=== PATIENT | male | born 2000 | race Two or more races ===

== ENCOUNTER 2020-07-22 15:07 | Outpatient (CLI) | payer OTHER | END 2020-07-22 15:19 | disposition home or self-care (01) | LOC: TOM 15:07 | PROVIDERS: ATTEND Psychiatry & Neurology Neurology | DX: G93.89 Other specified disorders of brain (principal) ==

== ENCOUNTER → 2021-07-24 | Outpatient (CLI) | payer OTHER | END | disposition home or self-care (01) | LOC: NUCLEAR 09:00 | DX: R00.2 Palpitations (principal) ==

== ENCOUNTER 2021-08-04 07:36 | Outpatient (CLI) | payer OTHER | END 2021-08-04 07:37 | disposition home or self-care (01) | LOC: NUCLEAR 07:36 | DX: R00.2 Palpitations (principal); R07.89 Other chest pain ==

== ENCOUNTER 2022-08-10 11:52 | Emergency (ER) | payer OTHER ==
[~2022-08-10] VITALS: Ht 167.6 cm; Wt 63.5 kg
== END 2022-08-10 16:58 | disposition home or self-care (01) ==
LOC: ER 11:52
DX: L02.214 Cutaneous abscess of groin (principal)

== ENCOUNTER 2022-11-20 08:48 | Emergency (ER) | payer OTHER ==
[~2022-11-20] VITALS: Ht 167.6 cm; Wt 67.6 kg
== END 2022-11-20 09:52 | disposition home or self-care (01) ==
LOC: ER 08:48
DX: L73.2 Hidradenitis suppurativa (principal)

== ENCOUNTER 2022-12-29 17:49 | Emergency (ER) | payer OTHER ==
[~2022-12-29] VITALS: Ht 167.6 cm; Wt 67.6 kg
== END 2022-12-29 20:43 | disposition home or self-care (01) ==
LOC: ER 17:49
DX: M25.572 Pain in left ankle and joints of left foot (principal)

== ENCOUNTER 2023-04-28 14:18 | Emergency (ER) | payer OTHER ==
[~2023-04-28] VITALS: Ht 167.6 cm; Wt 65.8 kg
== END 2023-04-28 20:17 | disposition home or self-care (01) ==
LOC: ER 14:18
PROVIDERS: General Practice
DX: R11.10 Vomiting, unspecified (principal); Z20.822 Contact with and (suspected) exposure to COVID-19

== ENCOUNTER 2024-03-24 19:01 | Emergency (ER) | payer OTHER ==
[~2024-03-24] VITALS: Ht 167.6 cm; Wt 70.8 kg
[2024-03-24] MEDS ORDERED: CVS OMEPRAZOLE1 EACH PO (20:32)
== END 2024-03-24 21:06 | disposition home or self-care (01) ==
LOC: ER 19:02
DX: K21.9 Gastro-esophageal reflux disease without esophagitis (principal)